=== PATIENT | male | born 1940 | race Caucasian/White ===

== ENCOUNTER 2017-05-01 19:02 | Inpatient (IN) | payer OTHER ==
[~2017-05-01] VITALS: Ht 185.4 cm; Wt 84.1 kg
[2017-05-01 19:45] LABS: EOSINOPHIL (%) 0 % (0-5); HEMATOCRIT 37.3 % (38.0-50.0); IMMATURE GRANULOCYTE (%) 0.6 % (0.0-0.7); IMMATURE GRANULOCYTE COUNT 0.1 K/uL; INSTRUMENT ABS NEUTROPHIL CT 11.1 K/uL; LYMPHOCYTE COUNT 0.3 K/uL (1.0-2.8); MCH 28.1 PG (29.0-34.0); MCV 82.5 FL (86-99); MEAN PLAT.VOLUME 8.7 uM^3 (9.0-12.4); MONOCYTE (%) 8.9 % (3-12); MONOCYTE COUNT 1.1 K/uL (0-0.8); NEUTROPHIL (%) 87.7 % (45-76); NEUTROPHIL COUNT 11.1 K/uL (1.8-6.4); PLATELET COUNT 172 K/uL (156-360); RBC DIS.WIDTH-CV 13.8 % (11.8-14.6); RBC DIS.WIDTH-SD 41.2 % (39-53); RED BLOOD COUNT 4.52 M/uL (4.00-5.50); WHITE BLOOD COUNT 12.6 K/uL (4.1-10.2)
[2017-05-01 19:58] LABS: CHLORIDE 100 mEq/L (99-109); POTASSIUM 3.5 mEq/L (3.7-5.4); SODIUM 136 mEq/L (136-147)
[2017-05-01 20:00] LABS: GLUCOSE 136 mg/dL (70-99)
[2017-05-01 20:01] LABS: ANION GAP 16 MEQ/L (2-14)
[2017-05-01 20:02] LABS: TOTAL BILIRUBIN 1.7 mg/dL (0.0-1.0)
[2017-05-01 20:04] LABS: ALKALINE PHOSPHATASE 72 IU/L (3-129); GFR ESTIMATE (CALCULATED) > 59 mL/min/
[2017-05-01 20:05] LABS: UREA NITROGEN (BUN) 26 mg/dL (9-23)
[2017-05-01 20:06] LABS: TROP-I INTERPRETATION NEGATIVE; TROPONIN-I < 0.01 ng/mL (0.0-0.30)
[2017-05-02 02:05] LABS: C-REACTIVE PROTEIN 165.3 MG/L (0-10)
[2017-05-02 06:16] LABS: ADD MIUA? YES; BILIRUBIN NEGATIVE; BLOOD SMALL; COLOR YELLOW ((YELLOW)); GLUCOSE (STRIP) NEGATIVE; KETONES 5; LEUKOCYTES NEGATIVE; NITRITE NEGATIVE; PROTEIN (STRIP) 30; UROBILINOGEN 0.2 MG/DL (0.2-1.0)
[2017-05-02 06:53] LABS: HEMATOCRIT 33.4 % (38.0-50.0); MCH 28.2 PG (29.0-34.0); MCHC 32.6 G/DL (30.0-36.0); MEAN PLAT.VOLUME 9.2 uM^3 (9.0-12.4); PLATELET COUNT 158 K/uL (156-360); RBC DIS.WIDTH-CV 14.1 % (11.8-14.6); RBC DIS.WIDTH-SD 44.8 % (39-53); RED BLOOD COUNT 3.86 M/uL (4.00-5.50); WHITE BLOOD COUNT 7.8 K/uL (4.1-10.2)
[2017-05-02 07:09] LABS: MCV 86.5 FL (86-99)
[2017-05-02 07:09] LABS: BACTERIA NONE SEEN /HPF; EPITHELIAL CELLS NONE SEEN /HPF; MUCUS TRACE /LPF; UCUL ADDED? NO; WHITE BLOOD CELLS 0-5 /HPF (0-5)
[2017-05-02 08:03] LABS: EOSINOPHIL (%) 0.1 % (0-5); IMMATURE GRANULOCYTE (%) 0.6 % (0.0-0.7); IMMATURE GRANULOCYTE COUNT 0.1 K/uL; INSTRUMENT ABS NEUTROPHIL CT 5.7 K/uL; LYMPHOCYTE COUNT 0.8 K/uL (1.0-2.8); MONOCYTE (%) 15.8 % (3-12); MONOCYTE COUNT 1.2 K/uL (0-0.8); NEUTROPHIL (%) 72.7 % (45-76); NEUTROPHIL COUNT 5.7 K/uL (1.8-6.4)
[2017-05-02 08:17] LABS: ANION GAP 12 MEQ/L (2-14); CHLORIDE 104 MEQ/L (99-109); POTASSIUM 3.4 MEQ/L (3.7-5.4); SAMPLE HEMOLYSIS CHECK 0; SAMPLE ICTERIC CHECK 0; SAMPLE LIPEMIA CHECK 0; SODIUM 137 MEQ/L (136-147)
[2017-05-02 08:22] LABS: GFR ESTIMATE (CALCULATED) > 59 mL/min/; GLUCOSE 102 mg/dL (70-99); UREA NITROGEN (BUN) 23 mg/dL (9-23)
[2017-05-02 12:59] VITALS: BP 164/78
[2017-05-02 17:03] VITALS: BP 156/84
[2017-05-02 18:07] LABS: METH RESISTANT S AUREUS PCR NEGATIVE (NEGATIVE)
[2017-05-02 18:09] LABS: PROBE CHECK PASS; SPECIMEN PROCESSING CONTROL PASS
[2017-05-02 20:00] VITALS: BP 168/83
[2017-05-03] VITALS (7 sets, daily range): BP systolic 152–190; BP diastolic 59–98
[2017-05-03 05:52] LABS: HEMATOCRIT 33.7 % (38.0-50.0); MCH 28.7 PG (29.0-34.0); MCHC 33.8 G/DL (30.0-36.0); MCV 84.9 FL (86-99); MEAN PLAT.VOLUME 9.7 uM^3 (9.0-12.4); PLATELET COUNT 161 K/uL (156-360); RBC DIS.WIDTH-CV 13.9 % (11.8-14.6); RBC DIS.WIDTH-SD 42.8 % (39-53); RED BLOOD COUNT 3.97 M/uL (4.00-5.50); WHITE BLOOD COUNT 6.1 K/uL (4.1-10.2)
[2017-05-03 06:34] LABS: ANION GAP 10 MEQ/L (2-14); CHLORIDE 105 MEQ/L (99-109); GFR ESTIMATE (CALCULATED) > 59 mL/min/; GLUCOSE 96 mg/dL (70-99); POTASSIUM 3.4 MEQ/L (3.7-5.4); SAMPLE HEMOLYSIS CHECK 0; SAMPLE ICTERIC CHECK 0; SAMPLE LIPEMIA CHECK 0; SODIUM 138 MEQ/L (136-147); UREA NITROGEN (BUN) 19 mg/dL (9-23)
[2017-05-03] MEDS ORDERED: ATENOLOL50 MG PO (14:04)
[2017-05-03] MEDS ORDERED: LISINOPRIL20 MG PO (14:04)
[2017-05-03] MEDS ORDERED: GABAPENTIN400 MG PO (14:05)
[2017-05-04] VITALS (7 sets, daily range): BP systolic 131–189; BP diastolic 83–95
[2017-05-04 05:37] LABS: HEMATOCRIT 34.2 % (38.0-50.0); MCH 28.7 PG (29.0-34.0); MCHC 34.2 G/DL (30.0-36.0); MEAN PLAT.VOLUME 9.6 uM^3 (9.0-12.4); PLATELET COUNT 176 K/uL (156-360); RBC DIS.WIDTH-CV 13.9 % (11.8-14.6); RBC DIS.WIDTH-SD 42.3 % (39-53); RED BLOOD COUNT 4.07 M/uL (4.00-5.50); WHITE BLOOD COUNT 5.1 K/uL (4.1-10.2)
[2017-05-04 06:15] LABS: ANION GAP 9 MEQ/L (2-14); CHLORIDE 106 MEQ/L (99-109); GFR ESTIMATE (CALCULATED) > 59 mL/min/; GLUCOSE 93 mg/dL (70-99); POTASSIUM 3.6 MEQ/L (3.7-5.4); SAMPLE HEMOLYSIS CHECK 0; SAMPLE ICTERIC CHECK 0; SAMPLE LIPEMIA CHECK 0; SODIUM 140 MEQ/L (136-147); UREA NITROGEN (BUN) 17 mg/dL (9-23)
[2017-05-05 04:12] VITALS: BP 136/93
[2017-05-05 06:36] LABS: HEMATOCRIT 36.4 % (38.0-50.0); MCH 27.8 PG (29.0-34.0); MCHC 33.2 G/DL (30.0-36.0); MCV 83.5 FL (86-99); MEAN PLAT.VOLUME 9.5 uM^3 (9.0-12.4); PLATELET COUNT 221 K/uL (156-360); RBC DIS.WIDTH-CV 13.4 % (11.8-14.6); RBC DIS.WIDTH-SD 41.4 % (39-53); RED BLOOD COUNT 4.36 M/uL (4.00-5.50); WHITE BLOOD COUNT 4.3 K/uL (4.1-10.2)
[2017-05-05 07:03] LABS: ANION GAP 10 MEQ/L (2-14); CHLORIDE 102 MEQ/L (99-109); GFR ESTIMATE (CALCULATED) > 59 mL/min/; SAMPLE HEMOLYSIS CHECK 0; SAMPLE ICTERIC CHECK 0; SAMPLE LIPEMIA CHECK 0; SODIUM 138 MEQ/L (136-147); UREA NITROGEN (BUN) 20 mg/dL (9-23)
[2017-05-05 07:05] LABS: GLUCOSE 209 mg/dL (70-99)
[2017-05-05 07:55] VITALS: BP 133/66
[2017-05-05 12:00] VITALS: BP 141/72
[2017-05-05 16:04] VITALS: BP 155/76
[2017-05-05 20:18] VITALS: BP 161/87
[2017-05-05 23:36] VITALS: BP 160/80
[2017-05-06 03:53] VITALS: BP 160/79
[2017-05-06 08:14] VITALS: BP 182/86
[2017-05-06 11:53] VITALS: BP 163/80
[2017-05-06 16:27] VITALS: BP 177/79
[2017-05-06 19:45] VITALS: BP 165/88
[2017-05-06 23:48] VITALS: BP 164/73
[2017-05-07 08:15] VITALS: BP 196/86
[2017-05-07 16:05] VITALS: BP 155/85
[2017-05-07 23:54] VITALS: BP 164/87
[2017-05-08 07:55] VITALS: BP 159/86
[2017-05-08 17:06] VITALS: BP 151/94
[2017-05-09] VITALS: BP 145/79
[2017-05-09 05:57] LABS: HEMATOCRIT 37.8 % (38.0-50.0); MCH 28.1 PG (29.0-34.0); MCHC 32.8 G/DL (30.0-36.0); MCV 85.5 FL (86-99); MEAN PLAT.VOLUME 9.2 uM^3 (9.0-12.4); PLATELET COUNT 279 K/uL (156-360); RBC DIS.WIDTH-CV 14.6 % (11.8-14.6); RBC DIS.WIDTH-SD 44.1 % (39-53); RED BLOOD COUNT 4.42 M/uL (4.00-5.50)
[2017-05-09 06:32] LABS: ANION GAP 9 MEQ/L (2-14); CHLORIDE 105 MEQ/L (99-109); GFR ESTIMATE (CALCULATED) > 59 mL/min/; GLUCOSE 116 mg/dL (70-99); POTASSIUM 3.7 MEQ/L (3.7-5.4); SAMPLE HEMOLYSIS CHECK 0; SAMPLE ICTERIC CHECK 0; SAMPLE LIPEMIA CHECK 0; SODIUM 139 MEQ/L (136-147); UREA NITROGEN (BUN) 21 mg/dL (9-23)
[2017-05-09 08:23] VITALS: BP 160/83
[2017-05-09 16:23] VITALS: BP 158/85
[2017-05-09 23:50] VITALS: BP 154/76
[2017-05-10 05:32] LABS: BASOPHIL COUNT 0.1 K/uL (0-0.1); EOSINOPHIL (%) 3.5 % (0-5); EOSINOPHIL COUNT 0.2 K/uL (0-0.3); HEMATOCRIT 37.8 % (38.0-50.0); IMMATURE GRANULOCYTE (%) 1.6 % (0.0-0.7); IMMATURE GRANULOCYTE COUNT 0.1 K/uL; INSTRUMENT ABS NEUTROPHIL CT 4.2 K/uL; LYMPHOCYTE COUNT 1.6 K/uL (1.0-2.8); MCH 27.9 PG (29.0-34.0); MCHC 32.3 G/DL (30.0-36.0); MCV 86.3 FL (86-99); MEAN PLAT.VOLUME 9.3 uM^3 (9.0-12.4); MONOCYTE COUNT 0.7 K/uL (0-0.8); NEUTROPHIL (%) 61.3 % (45-76); NEUTROPHIL COUNT 4.2 K/uL (1.8-6.4); PLATELET COUNT 281 K/uL (156-360); RBC DIS.WIDTH-CV 14.8 % (11.8-14.6); RBC DIS.WIDTH-SD 45.5 % (39-53); RED BLOOD COUNT 4.38 M/uL (4.00-5.50); WHITE BLOOD COUNT 6.8 K/uL (4.1-10.2)
[2017-05-10 05:52] LABS: ANION GAP 10 MEQ/L (2-14); CHLORIDE 105 MEQ/L (99-109); GFR ESTIMATE (CALCULATED) > 59 mL/min/; GLUCOSE 118 mg/dL (70-99); POTASSIUM 4.1 MEQ/L (3.7-5.4); SAMPLE HEMOLYSIS CHECK 0; SAMPLE ICTERIC CHECK 0; SAMPLE LIPEMIA CHECK 0; SODIUM 140 MEQ/L (136-147); UREA NITROGEN (BUN) 24 mg/dL (9-23)
[2017-05-10 08:12] VITALS: BP 135/78
[2017-05-10 15:49] VITALS: BP 118/61
[2017-05-10 23:18] VITALS: BP 118/71
[2017-05-11 07:43] VITALS: BP 133/71
[2017-05-11 15:30] VITALS: BP 132/71
[2017-05-11 19:53] VITALS: BP 128/81
[2017-05-11 23:30] VITALS: BP 131/90
[2017-05-12 04:55] LABS: EOSINOPHIL (%) 5.4 % (0-5); EOSINOPHIL COUNT 0.3 K/uL (0-0.3); HEMATOCRIT 38.5 % (38.0-50.0); IMMATURE GRANULOCYTE (%) 1.1 % (0.0-0.7); IMMATURE GRANULOCYTE COUNT 0.1 K/uL; INSTRUMENT ABS NEUTROPHIL CT 3.2 K/uL; LYMPHOCYTE COUNT 1.3 K/uL (1.0-2.8); MCHC 32.5 G/DL (30.0-36.0); MCV 86.1 FL (86-99); MEAN PLAT.VOLUME 9.1 uM^3 (9.0-12.4); MONOCYTE (%) 9.2 % (3-12); MONOCYTE COUNT 0.5 K/uL (0-0.8); NEUTROPHIL (%) 59.5 % (45-76); NEUTROPHIL COUNT 3.2 K/uL (1.8-6.4); PLATELET COUNT 253 K/uL (156-360); RBC DIS.WIDTH-CV 15.2 % (11.8-14.6); RBC DIS.WIDTH-SD 46.8 % (39-53); RED BLOOD COUNT 4.47 M/uL (4.00-5.50); WHITE BLOOD COUNT 5.4 K/uL (4.1-10.2)
[2017-05-12 05:03] LABS: CHLORIDE 108 mEq/L (99-109); POTASSIUM 4.6 mEq/L (3.7-5.4); SODIUM 138 mEq/L (136-147)
[2017-05-12 05:05] LABS: GLUCOSE 120 mg/dL (70-99)
[2017-05-12 05:06] LABS: ANION GAP 9 MEQ/L (2-14)
[2017-05-12 05:09] LABS: GFR ESTIMATE (CALCULATED) > 59 mL/min/
[2017-05-12 05:10] LABS: UREA NITROGEN (BUN) 21 mg/dL (9-23)
[2017-05-12 07:30] VITALS: BP 122/77
[2017-05-12 11:15] VITALS: BP 126/71
[2017-05-12 12:52] LABS: HDL CHOLESTEROL 26 MG/DL (Desirable>=40); LDL CHOLESTEROL 73 mg/dL (Desirable<100); NON-HDL CHOLESTEROL 118 mg/dL (Desirable<160); TOTAL CHOLESTEROL 144 mg/dL (Desirable<200); TRIGLYCERIDES 224 MG/DL (Normal: <150)
[2017-05-12] MEDS ORDERED: BACTRIM,SEPT1 TABLET PO (13:30)
[2017-05-12] MEDS ORDERED: CEPHALEXIN500 MG PO (13:30)
[2017-05-12] MEDS ORDERED: AMLODIPINE BESY10 MG PO (13:31)
== END 2017-05-12 15:38 | DRG 987 ==
LOC: EME 19:02 → 4SOUTH 22:45 → EDOF 22:45 → 4SOUTH 05-02 12:28
PROVIDERS: Emergency Medicine; Hospitalist; Internal Medicine; Thoracic Surgery (Cardiothoracic Vascular Surgery)
PROC: 0QBM0ZZ Excision of Left Tarsal, Open Approach (ICD-10-PCS; principal; 2017-05-04)
DX: L03.116 Cellulitis of left lower limb (principal); L97.529 Non-pressure chronic ulcer of other part of left foot with unspecified severity; G93.41 Metabolic encephalopathy; E46 Unspecified protein-calorie malnutrition; G62.9 Polyneuropathy, unspecified; L85.9 Epidermal thickening, unspecified; C18.9 Malignant neoplasm of colon, unspecified; I10 Essential (primary) hypertension; M92.62 Juvenile osteochondrosis of tarsus, left ankle; E78.1 Pure hyperglyceridemia; E87.6 Hypokalemia; M20.10 Hallux valgus (acquired), unspecified foot; R17 Unspecified jaundice; D64.9 Anemia, unspecified; F43.20 Adjustment disorder, unspecified; M19.90 Unspecified osteoarthritis, unspecified site; R32 Unspecified urinary incontinence; Z85.038 Personal history of other malignant neoplasm of large intestine; Z80.9 Family history of malignant neoplasm, unspecified
CPT/HCPCS: 70450; 71020; 73630; 73720; 80048; 80053; 80061; 81003; 82550; 82607; 83605; 84443; 84484; 85025; 85027; 85651; 86140; 87040; 87070; 87075; 87076; 87077; 87147; 87185; 87186; 87205; 87641; 88305; 93005; 93306; 93971; 95819; 97530 GO; 97530 GP; 99281; 99285; A6260; J0295; J0690; J1100; J1644; J1650; J1885; J2405; J3370; J7030; J7050; J7120

== ENCOUNTER 2017-06-03 12:36 | Inpatient (IN) | payer OTHER ==
[~2017-06-03] VITALS: Ht 185.4 cm; Wt 74.2 kg
[~2017-06-03 12:36] MED LIST: AMLODIPINE BESY10 MG PO; ATENOLOL50 MG PO; BACTRIM,SEPT1 TABLET PO; CEPHALEXIN500 MG PO; GABAPENTIN400 MG PO; LISINOPRIL20 MG PO
[2017-06-03 14:47] LABS: EOSINOPHIL (%) 0.1 % (0-5); HEMATOCRIT 36.4 % (38.0-50.0); IMMATURE GRANULOCYTE (%) 0.5 % (0.0-0.7); IMMATURE GRANULOCYTE COUNT 0.1 K/uL; INSTRUMENT ABS NEUTROPHIL CT 14.5 K/uL; LYMPHOCYTE COUNT 0.9 K/uL (1.0-2.8); MCH 27.9 PG (29.0-34.0); MCHC 32.7 G/DL (30.0-36.0); MCV 85.2 FL (86-99); MONOCYTE (%) 6.6 % (3-12); MONOCYTE COUNT 1.1 K/uL (0-0.8); NEUTROPHIL (%) 87.1 % (45-76); NEUTROPHIL COUNT 14.5 K/uL (1.8-6.4); RBC DIS.WIDTH-CV 14.8 % (11.8-14.6); RBC DIS.WIDTH-SD 46.5 % (39-53); RED BLOOD COUNT 4.27 M/uL (4.00-5.50); WHITE BLOOD COUNT 16.7 K/uL (4.1-10.2)
[2017-06-03 14:48] LABS: PLATELET COUNT 382 K/uL (156-360)
[2017-06-03 14:58] LABS: CHLORIDE 96 mEq/L (99-109); POTASSIUM 3.4 mEq/L (3.7-5.4); SODIUM 136 mEq/L (136-147)
[2017-06-03 15:00] LABS: GLUCOSE 217 mg/dL (70-99)
[2017-06-03 15:01] LABS: ANION GAP 16 MEQ/L (2-14)
[2017-06-03 15:04] LABS: GFR ESTIMATE (CALCULATED) > 59 mL/min/
[2017-06-03 15:05] LABS: UREA NITROGEN (BUN) 29 mg/dL (9-23)
[2017-06-03] MEDS ORDERED: MULTI VITAMIN1 EACH PO (15:55)
[2017-06-03] MEDS ORDERED: ASPIRIN EC325 MG PO (15:55)
[2017-06-03 17:54] LABS: ADD MIUA? YES; BILIRUBIN NEGATIVE; BLOOD SMALL; COLOR YELLOW ((YELLOW)); GLUCOSE (STRIP) 50; KETONES NEGATIVE; LEUKOCYTES NEGATIVE; NITRITE NEGATIVE; PROTEIN (STRIP) 30; SPECIFIC GRAVITY 1.015 (1.000-1.030); UROBILINOGEN 0.2 MG/DL (0.2-1.0)
[2017-06-03 17:56] LABS: BACTERIA RARE /HPF; EPITHELIAL CELLS RARE /HPF; MUCUS TRACE /LPF; RED BLOOD CELLS 0-5 /HPF (0-5); WHITE BLOOD CELLS 0-5 /HPF (0-5)
[2017-06-03 18:30] VITALS: BP 108/75
[2017-06-03 20:03] VITALS: BP 132/86
[2017-06-03 23:00] VITALS: BP 155/81
[2017-06-04] VITALS (7 sets, daily range): BP systolic 133–161; BP diastolic 67–95
[2017-06-04 04:30] LABS: HEMATOCRIT 28.6 % (38.0-50.0); MCH 27.9 PG (29.0-34.0); MCHC 32.9 G/DL (30.0-36.0); MCV 84.9 FL (86-99); PLATELET COUNT 308 K/uL (156-360); RBC DIS.WIDTH-CV 14.8 % (11.8-14.6); RBC DIS.WIDTH-SD 46.3 % (39-53); RED BLOOD COUNT 3.37 M/uL (4.00-5.50); WHITE BLOOD COUNT 9.3 K/uL (4.1-10.2)
[2017-06-04 04:41] LABS: POTASSIUM 3.3 mEq/L (3.7-5.4); SODIUM 139 mEq/L (136-147)
[2017-06-04 04:42] LABS: GLUCOSE 142 mg/dL (70-99)
[2017-06-04 04:44] LABS: ANION GAP 9 MEQ/L (2-14)
[2017-06-04 04:46] LABS: GFR ESTIMATE (CALCULATED) > 59 mL/min/
[2017-06-04 04:47] LABS: UREA NITROGEN (BUN) 17 mg/dL (9-23)
[2017-06-04 04:56] LABS: CHLORIDE 107 mEq/L (99-109)
[2017-06-04 08:05] LABS: POINT-OF-CARE METER ID UU13113781
[2017-06-04 11:55] LABS: POINT-OF-CARE METER ID UU13113781
[2017-06-04 16:46] LABS: POINT-OF-CARE METER ID UU13113781
[2017-06-04 20:59] LABS: POINT-OF-CARE METER ID UU13113698
[2017-06-05 02:45] VITALS: BP 124/84
[2017-06-05 07:44] LABS: Estimated Average Glucose 126 mg/dL (70-123)
[2017-06-05 07:55] LABS: POINT-OF-CARE METER ID UU13113781; POINT-OF-CARE USER ID NUTSLF44
[2017-06-05 07:59] VITALS: BP 151/84
[2017-06-05 11:27] VITALS: BP 181/105
[2017-06-05 12:42] LABS: POINT-OF-CARE METER ID UU13113781; POINT-OF-CARE USER ID NUTSLF44
[2017-06-05 15:30] VITALS: BP 171/86
[2017-06-05 17:14] LABS: POINT-OF-CARE METER ID UU13113781; POINT-OF-CARE USER ID NUTSLF44
[2017-06-05 19:52] VITALS: BP 144/99
[2017-06-05 22:39] VITALS: BP 158/83
[2017-06-06 07:31] VITALS: BP 157/79
[2017-06-06 08:57] LABS: HEMATOCRIT 32.3 % (38.0-50.0); MCH 28.3 PG (29.0-34.0); MCHC 33.1 G/DL (30.0-36.0); MCV 85.4 FL (86-99); PLATELET COUNT 422 K/uL (156-360); RBC DIS.WIDTH-CV 14.8 % (11.8-14.6); RBC DIS.WIDTH-SD 46.1 % (39-53); RED BLOOD COUNT 3.78 M/uL (4.00-5.50); WHITE BLOOD COUNT 7.2 K/uL (4.1-10.2)
[2017-06-06 09:18] LABS: ANION GAP 13 MEQ/L (2-14); CHLORIDE 106 MEQ/L (99-109); GFR ESTIMATE (CALCULATED) > 59 mL/min/; GLUCOSE 128 mg/dL (70-99); POTASSIUM 3.9 MEQ/L (3.7-5.4); SAMPLE HEMOLYSIS CHECK 0; SAMPLE ICTERIC CHECK 0; SAMPLE LIPEMIA CHECK 0; SODIUM 142 MEQ/L (136-147); UREA NITROGEN (BUN) 18 mg/dL (9-23)
[2017-06-06 15:58] VITALS: BP 104/63
[2017-06-06 23:17] VITALS: BP 142/86
[2017-06-07 06:37] LABS: HEMATOCRIT 30.8 % (38.0-50.0); MCH 27.5 PG (29.0-34.0); MCHC 32.5 G/DL (30.0-36.0); MCV 84.8 FL (86-99); MEAN PLAT.VOLUME 8.5 uM^3 (9.0-12.4); PLATELET COUNT 418 K/uL (156-360); RBC DIS.WIDTH-CV 14.7 % (11.8-14.6); RBC DIS.WIDTH-SD 45.4 % (39-53); RED BLOOD COUNT 3.63 M/uL (4.00-5.50); WHITE BLOOD COUNT 7.5 K/uL (4.1-10.2)
[2017-06-07 07:25] VITALS: BP 166/83
[2017-06-07 07:31] LABS: ANION GAP 11 MEQ/L (2-14); CHLORIDE 109 MEQ/L (99-109); GFR ESTIMATE (CALCULATED) > 59 mL/min/; GLUCOSE 122 mg/dL (70-99); POTASSIUM 4.1 MEQ/L (3.7-5.4); SAMPLE HEMOLYSIS CHECK 0; SAMPLE ICTERIC CHECK 0; SAMPLE LIPEMIA CHECK 0; SODIUM 143 MEQ/L (136-147); UREA NITROGEN (BUN) 27 mg/dL (9-23)
[2017-06-07] MEDS ORDERED: ENDOCET 5-3251 EACH PO (12:24)
[2017-06-07 15:15] VITALS: BP 160/77
[2017-06-08 00:12] VITALS: BP 167/96
[2017-06-08 07:08] VITALS: BP 142/80
[2017-06-08 16:49] VITALS: BP 149/88
[2017-06-09 00:43] VITALS: BP 158/88
[2017-06-09 09:02] VITALS: BP 111/71
[2017-06-09] MEDS ORDERED: FLUOXETINE HCL20 MG PO (14:30)
[2017-06-09] MEDS ORDERED: SENNALAX-S TAB1 EACH PO (14:32)
== END 2017-06-09 15:30 | DRG 475 ==
LOC: EME 12:36 → EDOF 15:51 → 4EAST 15:51 → 3EAST 18:12 → 4EAST 18:49 → 5EAST 06-05 19:33
PROVIDERS: Emergency Medicine; Internal Medicine; Student in an Organized Health Care Education/Training Program
PROC: 0Y6J0Z1 Detachment at Left Lower Leg, High, Open Approach (ICD-10-PCS; principal; 2017-06-03)
DX: M72.6 Necrotizing fasciitis (principal); M86.172 Other acute osteomyelitis, left ankle and foot; L03.116 Cellulitis of left lower limb; E11.621 Type 2 diabetes mellitus with foot ulcer; E87.6 Hypokalemia; E11.52 Type 2 diabetes mellitus with diabetic peripheral angiopathy with gangrene; E11.40 Type 2 diabetes mellitus with diabetic neuropathy, unspecified; F42.3 Hoarding disorder; E11.65 Type 2 diabetes mellitus with hyperglycemia; M19.079 Primary osteoarthritis, unspecified ankle and foot; I10 Essential (primary) hypertension; E78.1 Pure hyperglyceridemia; Z79.82 Long term (current) use of aspirin; Z79.899 Other long term (current) drug therapy; Z80.9 Family history of malignant neoplasm, unspecified; Z85.038 Personal history of other malignant neoplasm of large intestine
CPT/HCPCS: 71010; 73630; 80048; 80202; 81003; 82948; 83036; 83605; 85025; 85027; 87040; 87086; 88307; 88311; 93005; 97530 GP; 99281; 99285; J0131; J0330; J0692; J1170; J1650; J1815; J1885; J2270; J2405; J2543; J3010; J3370; J7030; J7050; J7120